=== PATIENT | female | born 1980 | race Caucasian/White ===

== ENCOUNTER 2024-11-14 13:48 | Emergency (ER) | payer MEDICAID, OTHER ==
[~2024-11-14] VITALS: Ht 165.1 cm; Wt 140.9 kg
--- NOTE | 2024-11-14 14:02 | ED.PDOC ---
Psychiatric HPI Comments This is a 44 year old female presenting to the ED with chief complaint of insomnia. Patient reports that she has been experiencing insomnia with associated auditory hallucinations with random voices for the past 2 months. Patient relays that she is on multiple psychiatric medications, but is not sure if she is taking them correctly. Patient denies any SI, HI, or VH. 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 Family History Family History: Reviewed,noncontributory to illness Social History Smoker: Non-Smoker Alcohol: Denies ETOH Use Drugs: Denies Drug Use Lives In: Home Constitutional: denies: chills, diaphoresis, fatigue, fever, malaise, sweats, weakness, others EENTM: denies: blurred vision, double vision, ear bleeding, ear discharge, ear drainage, ear pain, ear ringing, eye pain, eye redness, hearing loss, mouth pain, mouth swelling, nasal discharge, nose bleeding, nose congestion, nose pain, photophobia, tearing, throat pain, throat swelling, voice changes, others Respiratory: denies: cough, hemoptysis, orthopnea, SOB at rest, shortness of breath, SOB with excertion, stridor, wheezing, others Cardiovascular: denies: chest pain, dizzy spells, diaphoresis, Dyspnea on exertion, edema, irregular heart beat, left arm pain, lightheadedness, palpitations, PND, syncope, others Gastrointestinal: denies: abdomen distended, abdominal pain, blood streaked bowels, constipated, diarrhea, dysphagia, difficulty swallowing, hematemesis, melena, nausea, poor appetite, poor fluid intake, rectal bleeding, rectal pain, vomiting, others Genitourinary: denies: abnormal vagina bleeding, burning, dyspareunia, dysuria, flank pain, frequency, hematuria, incontinence, pain, , vagina disc harge, urgency, others Neurological: denies: dizziness, fainting, headache, left sided numbness, left sided weakness, numbness, paresthesia, pre-existing deficit, right sided numbness, right sided weakness, seizure, speech problems, tingling, tremors, weakness, others Musculoskeletal: denies: back pain, gout, joint pain, joint swelling, muscle pain, muscle stiffness, neck pain, others Integumetry: denies: bruises, change in color, change in hair/nails, dryness, laceration, lesions, lumps, rash, wounds, others Allergic/Immunocompromised: denies: Difficulty Healing, Frequent Infections, Hives, Itching, others Hematologic/Lymphatic: denies: anemia, blood clots, easy bleeding, easy bruising, swollen glands, others Endocrine: denies: excessive hunger, excessive sweating, excessive thirst, excessive urination, flushing, intolerance to cold, intolerance to heat, unexplained weight gain, unexplained weight loss, others Psychiatric: reports: sleepless; denies: anxiety, bipolar disorder, depression, hopeless, panic disorder, schizophrenia, suicidal, others All Other Systems: Reviewed and Negative Physical Exam General Appearance: No Apparent Distress, Normal HEENT: Normal ENT Inspection, Pharynx Normal, TMs Normal Neck: Full Range of Motion, Non-Tender, Normal, Normal Inspection Respiratory: Chest Non-Tender, Lungs Clear, No Accessory Muscle Use, No Respi ratory Distress, Normal Breath Sounds Cardiovascular: No Edema, No JVD, No Murmur, No Gallop, Normal Peripheral Pulses, Regular Rate/Rhythm Breast Exam: Deferred Gastrointestinal: No Organomegaly, Non Tender, No Pulsatile Mass, Normal Bowel Sounds, Soft Genitalia: Deferred Pelvic: Deferred Rectal: Deferred Extremities: No calf tenderness, Normal capillary refill, Normal inspection, Normal range of motion, Non-tender, No pedal edema Musculoskeletal : Apperance: Normal Neurologic: Alert, rotary filter operator II-XII nml as Tested, No Motor Deficits, Normal Affect, Normal Mood, No Sensory Deficits Cerebellar Function: Normal Reflexes: Normal Skin: Dry, Normal Color, Warm Lymphatic: No Adenopathy Was a procedure done? Was a procedure done?: No Psych Differential Dx Psych. Differential Dx: Sleepless X-Ray, Labs, Meds, VS Vital Signs Date Time Temp Pulse Resp B/P (MAP) Pulse Ox O2 Delivery O2 Flow Rate FiO2 11/14/24 15:40 98.7 74 18 139/74 (95) 97 98.7 11/14/24 13:59 98.6 79 18 152/117 (129) 99 98.6 Lab Test 11/14/24 16:59 11/14/24 14:40 11/14/24 14:28 Range/Units Urine Color Pending Urine Clarity Pending Urine pH Pending Urine Specific [place] Pending Urine Protein Pending Urine Ketones Pending Urine Blood Pending Urine Nitrite Pending Urine Bilirubin Pending Urine Urobilinogen Pending Urine Leukocyte Esterase Pending Urine RBC 0 - 4 /hpf Urine Microscopic WBC Pending Urine Squamous Epithelial Cells <5 /hpf Urine Bacteria None Seen /hpf Urine Glucose Pending Urine Opiates Screen Pending Urine Fentanyl Screen Pending Urine Barbiturates Screen Pending Urine Phencyclidine Screen Pending Urine Amphetamines Screen Pending Urine Benzodiazepines Screen Pending Urine Cocaine Screen Pending Urine Cannabinoids Screen Pending White Blood Count 12.9 H 4.4-10.8 10^3/uL Red Blood Count 5.29 H 4.0-5.20 10^6/uL Hemoglobin 16.0 12.2-16.2 g/dL Hematocrit 46.7 H 36.0-46.0 % Mean Corpuscular Volume 88.2 80.0-100.0 fL Mean Corpuscular Hemoglobin 30.3 28.0-32.0 pg Mean Corpuscular Hemoglobin Concent 34.3 32.0-36.0 g/dL Red Cell Distribution Width 14.0 11.8-14.3 % Platelet Count 355 140-450 10^3/uL Mean Platelet Volume 8.6 6.9-10.8 fL Neutrophils (%) (Auto) 67.1 37.0-80.0 % Lymphocytes (%) (Auto) 25.3 10.0-50.0 % Monocytes (%) (Auto) 5.6 0.0-12.0 % Eosinophils (%) (Auto) 1.2 0.0-7.0 % Basophils (%) (Auto) 0.8 0.0-2.0 % Neutrophils # (Auto) 8.7 H 1.6-8.6 10 ^3/uL Lymphocytes # (Auto) 3.3 0.4-5.4 10 ^3/uL Monocytes # (Auto) 0.7 0-1.3 10 ^3/uL Eosinophils # (Auto) 0.1 0-0.8 10 ^3/uL Basophils # (Auto) 0.1 0-0.2 10 ^3/uL Nucleated Red Blood Cells 0.0 % Sodium Level 137 136-145 mmol/L Potassium Level 3.6 3.5-5.1 mmol/L Chloride Level 105 98-107 mmol/L Carbon Dioxide Level 25 20-31 mmol/L Anion Gap 7 5-15 Blood Urea Nitrogen 8 L 9-23 mg/dL Creatinine 0.87 0.550-1.02 mg/dL Glomerular Filtration Rate Calc 84 >90 mL/min BUN/Creatinine Ratio 9.2 L 10.0-20.0 Serum Glucose 120 H 74-106 mg/dL Calcium Level 10.2 8.7-10.4 mg/dL Salicylates Level < 3.0 -30 mg/dL Acetaminophen Level 3.0 L 10.0-20.0 UG/ML Plasma/Serum Blood Alcohol 4.3 <10 mg/dL Time of 1ST Reevaluation: 14:56 Reevaluation 1ST: Unchanged Patient Education/Counseling: Diagnosis, Treatment Family Education/Counseling: No Family Present Departure 1 Departure Time of Disposition: 18:05 (Patient felt want any more tests around it out to Dr. Anyone else. Patient has signed out AMA) Impression: Primary Impression: Insomnia Qualified Codes: G47.00 - Insomnia, unspecified Additional Impression: Unspecified mood [affective] disorder Disposition: LEFT AGAINST MEDICAL ADVICE Condition: Stable Critical Care Note Critical Care Time?: No Stability Stability form required: No Heart Score Heart Score: Heart Score Response (Comments) Value History N/A 0 EKG N/A 0 Age N/A 0 Risk Factors N/A 0 Troponin N/A 0 Total 0 I personally scribed for BILLY REDD MD ([email or web address]) on 11/14/24 at 14:02. Electronically submitted by Demetrius Farah ([email or web address]). BILLY REDD MD Nov 14, 2024 14:02
[2024-11-14 14:45] LABS: Hematocrit 46.7 % (36.0-46.0); Hemoglobin 16.0 g/dL (12.2-16.2); Mean Corpuscular Hemoglobin 30.3 pg (28.0-32.0); Mean Corpuscular Volume 88.2 fL (80.0-100.0); Nucleated Red Blood Cells % 0.0 %
[2024-11-14 14:56] LABS: Chloride 105 mmol/L (98-107); Potassium 3.6 mmol/L (3.5-5.1); Sodium 137 mmol/L (136-145)
[2024-11-14 14:57] LABS: Anion Gap 7 (5-15); Carbon Dioxide 25 mmol/L (20-31)
[2024-11-14 14:58] LABS: Calcium 10.2 mg/dL (8.7-10.4)
[2024-11-14 15:03] LABS: BUN/Creatinine Ratio 9.2 (10.0-20.0)
[2024-11-14 15:05] LABS: Acetaminophen 3.0 UG/ML (10.0-20.0); Blood Urea Nitrogen 8 mg/dL (9-23); Glucose 120 mg/dL (74-106); Salicylate < 3.0 mg/dL (-30)
[2024-11-14 15:40] VITALS: BP 139/74; PULSE 74; RESP 18; TEMP 98.7; O2SAT 97
== END 2024-11-14 17:57 | disposition left against medical advice (07) ==
LOC: EDBD 13:48 → ER 13:48
DX: G47.00 Insomnia, unspecified (principal); F39 Unspecified mood [affective] disorder
CPT/HCPCS: 36415; 80048; 80320; 80329; 85025

== ENCOUNTER 2024-11-14 20:13 | Emergency (ER) | payer MEDICAID ==
[~2024-11-14] VITALS: Ht 165.1 cm; Wt 133.2 kg
[2024-11-14 20:13] VITALS: BP 154/73; PULSE 111; RESP 18; TEMP 98.1; O2SAT 97
[2024-11-14 20:54] LABS: Hematocrit 48.0 % (36.0-46.0); Hemoglobin 16.1 g/dL (12.2-16.2); Mean Corpuscular Hemoglobin 29.6 pg (28.0-32.0); Mean Corpuscular Volume 88.2 fL (80.0-100.0); Nucleated Red Blood Cells % 0.0 %
[2024-11-14 21:04] LABS: Chloride 101 mmol/L (98-107); Sodium 136 mmol/L (136-145)
[2024-11-14 21:05] LABS: Anion Gap 10 (5-15); Carbon Dioxide 25 mmol/L (20-31)
[2024-11-14 21:09] LABS: Calcium 10.9 mg/dL (8.7-10.4); Potassium 3.3 mmol/L (3.5-5.1)
[2024-11-14 21:10] LABS: BUN/Creatinine Ratio 9.7 (10.0-20.0); Blood Urea Nitrogen 10 mg/dL (9-23)
[2024-11-14 21:11] LABS: Glucose 128 mg/dL (74-106)
[2024-11-14 21:21] LABS: Lipase 26 U/L (12-53)
--- NOTE | 2024-11-14 21:26 | ED.PDOC ---
Psychiatric HPI Comments 44 year old female presents to the ED with a chief complaint of insomnia onset 8 days. Patient was seen earlier today (11/14/24) in the ED, left AMA. Patient states she has been experiencing insomnia, states she has not had food or water for the past 8 days, is also experiencing auditory hallucinations. She also states she has been under stress recently, dealing with family issues with her girlfriend. Patient is a poor historian, becomes agitated when asked questions. She states she doesn't want to be here anymore. Denies any PMHx. No other symptoms or modifying factors present at this time. Chief Complaint: Mental Health Time Seen by MD: 21:00 Reviewed Notes: Medications, Allergies Information Source: Patient Mode of Arrival: Ambulatory Severity of Mental Status: Moderate Severity of Symptoms: Moderate Timing: Days Duration: Since onset Prehospital treatment: None Presents with: Bizarre Behavior Ingestion: None Stressors: Family History of: None Quality: Hallucinations (auditory ) Associated signs and symptoms: Hallucinations Vital Signs Vital Signs Date Time Temp Pulse Resp B/P (MAP) Pulse Ox O2 Delivery O2 Flow Rate FiO2 11/14/24 20:13 98.1 111 18 154/73 (100) 97 98.1 Physical Exam PHYSICAL EXAM: General: Awake, alert and oriented. No acute distress. Skin: Skin in warm, dry and intact without rashes or lesions. HEENT: The head is normocephalic and atraumatic. Conjunctivae are clear without exudates or hemorrhage. Sclera is non-icteric. Neck: Normal range of motion. No JVD. Cardiac: Regular rate Respiratory: No signs of respiratory distress. No Stridor. Extremities: Upper and lower extremities are atraumatic in appearance without deformity. Neurological: The patient is awake, alert and oriented to person, place, and time with normal speech. Speech is clear. There is no facial asymmetry. 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 Was a procedure done?: No Psych Differential Dx Psych. Differential Dx: Anxiety, Bipolar Disorder, Depression, Hopeless, Schizoprenia, Sleepless, Suicidal, Other OD Differential Dx: Alcohol Abuse, Anxiety, Schizophrenia, Substance Abuse X-Ray, Labs, Meds, VS Vital Signs Date Time Temp Pulse Resp B/P (MAP) Pulse Ox O2 Delivery O2 Flow Rate FiO2 11/14/24 20:13 98.1 111 18 154/73 (100) 97 98.1 Lab Test 11/14/24 20:38 Range/Units White Blood Count 15.8 H 4.4-10.8 10^3/uL Red Blood Count 5.44 H 4.0-5.20 10^6/uL Hemoglobin 16.1 12.2-16.2 g/dL Hematocrit 48.0 H 36.0-46.0 % Mean Corpuscular Volume 88.2 80.0-100.0 fL Mean Corpuscular Hemoglobin 29.6 28.0-32.0 pg Mean Corpuscular Hemoglobin Concent 33.5 32.0-36.0 g/dL Red Cell Distribution Width 14.2 11.8-14.3 % Platelet Count 381 140-450 10^3/uL Mean Platelet Volume 8.9 6.9-10.8 fL Neutrophils (%) (Auto) 74.2 37.0-80.0 % Lymphocytes (%) (Auto) 17.5 10.0-50.0 % Monocytes (%) (Auto) 5.5 0.0-12.0 % Eosinophils (%) (Auto) 1.8 0.0-7.0 % Basophils (%) (Auto) 1.0 0.0-2.0 % Neutrophils # (Auto) 11.8 H 1.6-8.6 10 ^3/uL Lymphocytes # (Auto) 2.8 0.4-5.4 10 ^3/uL Monocytes # (Auto) 0.9 0-1.3 10 ^3/uL Eosinophils # (Auto) 0.3 0-0.8 10 ^3/uL Basophils # (Auto) 0.2 0-0.2 10 ^3/uL Nucleated Red Blood Cells 0.0 % Sodium Level 136 136-145 mmol/L Potassium Level 3.3 L 3.5-5.1 mmol/L Chloride Level 101 98-107 mmol/L Carbon Dioxide Level 25 20-31 mmol/L Anion Gap 10 5-15 Blood Urea Nitrogen 10 9-23 mg/dL Creatinine 1.03 H 0.550-1.02 mg/dL Glomerular Filtration Rate Calc 69 >90 mL/min BUN/Creatinine Ratio 9.7 L 10.0-20.0 Serum Glucose 128 H 74-106 mg/dL Calcium Level 10.9 H 8.7-10.4 mg/dL Lipase 26 12-53 U/L Plasma/Serum Blood Alcohol 5.8 <10 mg/dL Time of 1ST Reevaluation: 21:30 Reevaluation 1ST: Unchanged Patient Education/Counseling: Other Family Education/Counseling: No Family Present Departure 1 Departure Time of Disposition: 05:07 Impression: Primary Impression: Mental health problem Additional Impression: Eloped from emergency department Disposition: LEFT AWOL/ELOPED Condition: Other Comments Patient was seen and evaluated in the triage area. She eloped from the emergency department. Critical Care Note Critical Care Time?: No Stability Stability form required: No I personally scribed for CECELIA SARAH MD ([email or web address]) on 11/14/24 at 21:26. Electronically submitted by Alison Smith ([email or web address]). CECELIA SARAH MD Nov 14, 2024 21:26
[2024-11-14] MEDS ORDERED: POTASSIUM CHL 20 Meq TABLET PO ONE (22:45)
== END 2024-11-15 00:13 | disposition left against medical advice (07) ==
LOC: ER 20:13
DX: G47.00 Insomnia, unspecified (principal)
CPT/HCPCS: 36415; 80048; 80320; 83690; 85025

== ENCOUNTER 2024-11-15 11:21 | Emergency (ER) | payer MEDICAID ==
[~2024-11-15] VITALS: Ht 167.6 cm; Wt 136.5 kg
[2024-11-15 15:11] VITALS: BP 128/69; PULSE 88; RESP 22; TEMP 97.9; O2SAT 96
[2024-11-15 15:50] LABS: Hematocrit 47.6 % (36.0-46.0); Hemoglobin 16.1 g/dL (12.2-16.2); Mean Corpuscular Hemoglobin 29.6 pg (28.0-32.0); Mean Corpuscular Volume 87.6 fL (80.0-100.0); Nucleated Red Blood Cells % 0.1 %
[2024-11-15 15:58] LABS: Anion Gap 10 (5-15); Carbon Dioxide 21 mmol/L (20-31); Chloride 104 mmol/L (98-107); Potassium 3.7 mmol/L (3.5-5.1)
[2024-11-15 16:02] LABS: Calcium 10.6 mg/dL (8.7-10.4); Sodium 135 mmol/L (136-145)
[2024-11-15 16:04] LABS: BUN/Creatinine Ratio 12.3 (10.0-20.0); Blood Urea Nitrogen 13 mg/dL (9-23); Glucose 121 mg/dL (74-106)
[2024-11-15 16:06] LABS: Acetaminophen 2.0 UG/ML (10.0-20.0); Salicylate < 3.0 mg/dL (-30)
--- NOTE | 2024-11-15 16:11 | ED.PDOC ---
History of Present Illness HPI Comments 44-year-old woman was seen here yesterday for insomnia but eloped. Patient returned today with complaints of insomnia and generally feeling unwell. Patient denies SI, HI, AH, VH. 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 Family History Family History: Reviewed,noncontributory to illness Social History Smoker: Non-Smoker Alcohol: Denies ETOH Use Drugs: Denies Drug Use Lives In: Home All Other Systems: Reviewed and Negative Physical Exam General Appearance: No Apparent Distress HEENT: Pharynx Normal Neck: Normal Inspection Respiratory: No Respiratory Distress Cardiovascular: No Edema Breast Exam: Deferred Gastrointestinal: Non Tender Genitalia: Deferred Pelvic: Deferred Rectal: Deferred Extremities: Normal range of motion Neurologic: No Motor Deficits Cerebellar Function: NOT DONE Reflexes: NOT DONE Skin: Normal Color Lymphatic: NOT DONE Was a procedure done? Was a procedure done?: No Differential Dx Considerations may include: Polysubstance abuse, mood disorder, viral syndrome X-Ray, Labs, Meds, VS Vital Signs Date Time Temp Pulse Resp B/P (MAP) Pulse Ox O2 Delivery O2 Flow Rate FiO2 11/15/24 15:11 88 22 96 Room Air 11/15/24 15:11 97.9 88 22 128/69 (88) 96 97.9 11/15/24 11:25 100 18 118/62 (80) 98 Lab Test 11/15/24 15:35 Range/Units White Blood Count Pending Red Blood Count Pending Hemoglobin Pending Hematocrit Pending Mean Corpuscular Volume Pending Mean Corpuscular Hemoglobin Pending Mean Corpuscular Hemoglobin Concent Pending Red Cell Distribution Width Pending Platelet Count Pending Mean Platelet Volume Pending Neutrophils (%) (Auto) Pending Lymphocytes (%) (Auto) Pending Monocytes (%) (Auto) Pending Basophils (%) (Auto) Pending Neutrophils # (Auto) Pending Lymphocytes # (Auto) Pending Monocytes # (Auto) Pending Sodium Level Pending Potassium Level Pending Chloride Level Pending Carbon Dioxide Level Pending Anion Gap Pending Blood Urea Nitrogen Pending Creatinine Pending Glomerular Filtration Rate Calc Pending BUN/Creatinine Ratio Pending Serum Glucose Pending Calcium Level Pending Salicylates Level Pending Acetaminophen Level Pending Plasma/Serum Blood Alcohol Pending Time of 1ST Reevaluation: 16:09 Reevaluation 1ST: Unchanged Patient Education/Counseling: Diagnosis, Treatment Family Education/Counseling: No Family Present SEPSIS Sepsis Screen Date sepsis recognized/suspect: Nov 15, 2024 Time Sepsis recognized/suspect: 1135 Recent Procedure: No On Antibiotic Therapy: No Respiratory Rate >20: No Heart Rate >90: Yes Temp<36 C (96.8 F) or >38.3 C: No SBP <90 or MAP <65 mmHG: No New Acute Mental Status Change: No Is the patient on CPAP, BIPAP,: No Physician Orders Urinalysis (11/15/24 13:13) Test, Urine (11/15/24 13:13) Basic Metabolic Panel (11/15/24 15:22) Drug Screen (11/15/24 15:22) Blood Alcohol (11/15/24 15:22) Acetaminophen (11/15/24 15:22) Complete Blood Count (11/15/24 15:22) Salicylate (11/15/24 15:22) Soc Telemed Psych Consult (11/15/24 15:22) Vital Signs Date Time Temp Pulse Resp B/P (MAP) Pulse Ox O2 Delivery O2 Flow Rate FiO2 11/15/24 15:11 88 22 96 Room Air 11/15/24 15:11 97.9 88 22 128/69 (88) 96 97.9 11/15/24 11:25 100 18 118/62 (80) 98 Laboratory Tests Test 11/15/24 15:35 White Blood Count Pending Departure 1 Departure Time of Disposition: 16:09 (Patient was irritated with staff and eloped from the emergency department) Impression: Primary Impression: Unspecified mood [affective] disorder Additional Impression: Eloped from emergency department Disposition: 07 LEFT AWOL/ELOPED Condition: Fair Critical Care Note Critical Care Time?: No Stability Stability form required: No Heart Score Heart Score: Heart Score Response (Comments) Value History N/A 0 EKG N/A 0 Age N/A 0 Risk Factors N/A 0 Troponin N/A 0 Total 0 BILLY REDD MD Nov 15, 2024 16:11
== END 2024-11-15 15:52 | disposition left against medical advice (07) ==
LOC: ER 11:21 → EDBD 11:21 → EDUNIT# 11:21 → ER 15:52
DX: F39 Unspecified mood [affective] disorder (principal)
CPT/HCPCS: 36415; 80048; 80320; 80329; 85025